=== PATIENT | male | born 1980 | race Caucasian/White ===

== ENCOUNTER 2016-11-18 18:33 | Emergency (ER) | payer OTHER ==
[2016-11-18] MEDS ORDERED: BUPIVACAINE HCL/PF 0.5% 30 ML VIAL ONE (18:55)
--- NOTE | 2016-11-18 19:49 | ER NURSING DOCUMENTATION ---
Nurse's Notes [facility] Name:Jake Calvert Age:36 yrs Sex:Male :1980 Arrival Date:11/18/2016 Time:18:33 Bed6 Private MD: Diagnosis:Knee Laceration w/o Complication Presentation: 11/18 19:05 Presenting complaint: Patient states: 45 minutes ago slipped and fell on wooden porch sj landing on right knee. Large 5-6 cm full thickness laceration proximal tibia. Transition of care: Home. Notified ED Physician of patient's arrival and CC Dr. Pfeiffer notified. 19:05 Acuity: KRISTI 3 sj 19:05 Method Of Arrival: Private Vehicle sj Triage Assessment: 19:08 General: Appears in no apparent distress, Behavior is cooperative, pleasant. Pain: sj Complains of pain in right knee. Musculoskeletal: Circulation, motion, and sensation intact Capillary refill < 3 seconds Range of motion intact in right knee Denies numbness in, right foot. Injury Description: Laceration sustained to below right knee. Historical: - Allergies: No known drug Allergies; - Home Meds: 1. None - PMHx: None; - PSHx: Tonsillectomy; - Tetanus: < 10 years Other in 2010. - Immunization history: TETANUS UTD. - Ebola Screening: : Patient negative for fever greater than or equal to 101.5 degrees Fahrenheit, and additional compatible Ebola Virus Disease symptoms. Patient denies exposure to infectious person. Patient denies travel to an Ebola-affected area in the 21 days before illness onset. No symptoms or risks identified at this time. . - Social history: Smoking status: Patient states was never smoker of tobacco. Patient/guardian denies using alcohol, street drugs. Screenin:18 Infectious Disease Risk None. Abuse screen: Denies threats or abuse. Denies injuries sj from another. Nutritional screening: No deficits noted. Assessment: 19:18 Injury Description: Laceration is contaminated, full thickness, jagged, 2.6 to 7.5 cm sj long, is bleeding a small amount. Vital Signs: 19:15 BP 146 / 83; Pulse 76; Resp 16; Temp 95.8(O); Pulse Ox 96% on R/A; Weight 102.06 kg; sj Height 5 ft. 11 in. (180.34 cm); Pain 2/10; 19:49 BP 117 / 73; Pulse 72; Resp 15; Pulse Ox 96% on R/A; Pain 0/10; rh 19:15 Body Mass Index 31.38 (102.06 kg, 180.34 cm) ED Course: 18:34 Patient arrived in ED. 18:36 Petar Pfeiffer MD is Attending Physician. tl1 19:05 Melanie Jama is Primary Nurse. 19:07 Triage completed. 19:19 Valuables Remains with patient Patient has correct armband on for positive sj identification. Bed in low position. Call light in reach. 19:19 Wound care to laceration was cleaned with Irrigation Normal Saline Patient tolerated sj well. 19:35 Wound care was dressed with bacitracin 4X4s, Kerlix, Telfa CRISPIN WRAP . rh Administered Medications: 19:40 Drug: Bactrim (160 mg-800 mg (DS) 2 tabs; Route: PO; 19:48 Follow up: Response: No adverse reaction 19:40 Drug: Keflex 500 mg; Route: PO; 19:48 Follow up: Response: No adverse reaction rh Outcome: 19:36 Discharge ordered by . tl1 19:49 Discharged to home ambulatory, with significant other. 19:49 Condition: improved 19:49 Discharge Assessment: Patient awake, alert and oriented x 3. No cognitive and/or functional deficits noted. Patient verbalized understanding of disposition instructions. 19:49 Discharge instructions given to patient, significant other, Instructed on discharge instructions, follow up and referral plans. medication usage, Demonstrated understanding of instructions, medications, Prescriptions given X 2. 19:49 Patient left the ED. rh Signatures: Petar Pfeiffer MD MD tl1 Jasmyne Reza Radha Lazar Melanie Jama
--- NOTE | 2016-11-18 19:49 | ER PHYSICIAN DOCUMENTATION ---
Physician Documentation [facility] Name:Jake Calvert Age:36 yrs Sex:Male :1980 Arrival Date:11/18/2016 Time:18:33 Bed6 Private MD: Petar Robin Disposition: 11/18/16 19:36 Discharged to Home/Self Care. Impression: Knee Laceration w/o Complication. - Condition is Good. - Discharge Instructions: Abrasion - LACERATION, Extrem (suture, staple or tape). - Prescriptions for Bactrim DS 160- 800 mg Oral Tablet - take 1 tablet by ORAL route every 12 hours for 3 days; 6 tablet. Keflex 500 mg Oral - take 1 capsule by ORAL route every 6 hours for 3 days; 12 capsule. - Medical Reconciliation form form. - Follow up: Emergency Department; When: 1 - 2 days; Reason: Recheck today's complaints, Continuance of care. - Problem is new. - Symptoms have improved. HPI: 11/18 18:37 This 36 yrs old Male presents to ER with complaints of Knee Injury. tl1 18:37 The patient presents with an injury. The complaints affect the lateral aspect of right tl1 knee, medial aspect of right knee and right knee. 19:03 Context: The problem was sustained at work, resulted from the patient falling, while tl1 walking. Onset: The symptom(s)/episode began/occurred just prior to arrival. Slipped and fell while walking, sustaining a laceration to his right knee. Immunizations are UTD.. Historical: - Allergies: No known drug Allergies; - Home Meds: 1. None - PMHx: None; - PSHx: Tonsillectomy; - Tetanus: < 10 years Other in 2010. - Immunization history: TETANUS UTD. - Ebola Screening: : Patient negative for fever greater than or equal to 101.5 degrees Fahrenheit, and additional compatible Ebola Virus Disease symptoms. Patient denies exposure to infectious person. Patient denies travel to an Ebola-affected area in the 21 days before illness onset. No symptoms or risks identified at this time. . - Social history: Smoking status: Patient states was never smoker of tobacco. Patient/guardian denies using alcohol, street drugs. ROS: 19:05 MS/extremity: Positive for laceration. tl1 19:05 All other systems are negative. Exam: 19:05 Constitutional: This is a well developed, well nourished patient who is awake, alert, tl1 and in no acute distress. 19:05 Head/Face: Normocephalic, atraumatic. tl1 19:05 Cardiovascular: Rate: normal. 19:05 Respiratory: the patient does not display signs of respiratory distress, Respirations: normal. 19:05 Musculoskeletal/extremity: Extremities: grossly normal except: noted in the right knee: laceration. Vital Signs: 19:15 BP 146 / 83; Pulse 76; Resp 16; Temp 95.8(O); Pulse Ox 96% on R/A; Weight 102.06 kg; sj Height 5 ft. 11 in. (180.34 cm); Pain 2/10; 19:49 BP 117 / 73; Pulse 72; Resp 15; Pulse Ox 96% on R/A; Pain 0/10; rh 19:15 Body Mass Index 31.38 (102.06 kg, 180.34 cm) sj Laceration: 19:06 Wound Repair of 7cm ( 2.8in ) subcutaneous laceration to right knee. Irregularly tl1 shaped.. Skin/tissue flap noted.. Moderate contamination.. Distal neuro/vascular/tendon intact. Anesthesia: Wound infiltrated with 6 mls of 0.5% marcaine. Wound prep: Extensive cleansing, Wound explored extensively, Copious irrigation, All debris that could be removed was, but removal of all debris was not possible. I got it as clean as I possibly could, cleaning with Hibiclens, and irrigating and removing debris with a 4X4 for about 25 minutes. . Skin closed with 3-0 Ethilon using Interrupted sutures. Dressed with Bacitracin, 4x4's, Alina, Ty wrap. Patient tolerated well. MDM: 18:36 Patient medically screened. tl1 19:34 Data reviewed: vital signs, nurses notes, and as a result, I will discharge patient. tl1 Counseling: I had a detailed discussion with the patient and/or guardian regarding: the historical points, exam findings, and any diagnostic results supporting the discharge/admit diagnosis, the need for outpatient follow up, to return to the emergency department if symptoms worsen or persist or if there are any questions or concerns that arise at home, Keep right knee as straight as possible. Return in 2 days to see me for wound check; sooner for obvious signs of infection.. Response to treatment: the patient's symptoms have markedly improved after treatment. Dispensed Medications: 19:40 Drug: Bactrim (160 mg-800 mg (DS) 2 tabs; Route: PO; rh 19:48 Follow up: Response: No adverse reaction rh 19:40 Drug: Keflex 500 mg; Route: PO; rh 19:48 Follow up: Response: No adverse reaction rh Signatures: Petar Pfeiffer MD MD tl1 Jasmyne Reza Melanie Jama
[2016-11-18] MEDS ORDERED: SULFAMETHOXAZOLE/TMP 800/160MG 1 EA TABLET PO ONE (19:53)
[2016-11-18] MEDS ORDERED: CEPHALEXIN MONOHYDRATE 250 MG CAPSULE PO ONE (19:53)
== END 2016-11-18 19:49 | disposition home or self-care (01) ==
LOC: ER 18:33
DX: S81.011A Laceration without foreign body, right knee, initial encounter (principal); W01.0XXA Fall on same level from slipping, tripping and stumbling without subsequent striking against object, initial encounter; Y93.01 Activity, walking, marching and hiking
CPT/HCPCS: 12032; 99284